=== PATIENT | male | born 1965 | race Two or more races ===

== ENCOUNTER 2017-05-03 13:34 | Emergency (ER) | payer OTHER ==
[2017-05-03 19:35] VITALS: BP 156/60
== END 2017-05-03 19:37 | disposition home or self-care (01) ==
LOC: ED 13:34
DX: G43.909 Migraine, unspecified, not intractable, without status migrainosus (principal); I10 Essential (primary) hypertension; E11.9 Type 2 diabetes mellitus without complications; G89.29 Other chronic pain; M54.2 Cervicalgia
CPT/HCPCS: J0360; J1200; J2765; J3490; J7030

== ENCOUNTER 2017-05-28 17:46 | Emergency (ER) | payer OTHER ==
[~2017-05-28] VITALS: Ht 167.6 cm; Wt 90.7 kg
[2017-05-28 19:08] LABS: CALCIUM 9.2 mg/dL (8.5-10.1); CARBON DIOXIDE 29.7 mmol/L (21-32); CHLORIDE SERUM 104 mmol/L (98-107); CREATININE SERUM 1.2 mg/dL (0.7-1.3); GFR1 > 60 mL/min; GLUCOSE SERUM 287 mg/dL (74-106); POTASSIUM SERUM 4.7 mmol/L (3.5-5.1); SODIUM SERUM 141 mmol/L (136-145)
[2017-05-28 22:10] VITALS: BP 165/95
== END 2017-05-28 22:42 | disposition home or self-care (01) ==
LOC: ED 17:46
PROVIDERS: Emergency Medicine
DX: G58.9 Mononeuropathy, unspecified (principal); G89.29 Other chronic pain; E11.9 Type 2 diabetes mellitus without complications; Z79.84 Long term (current) use of oral hypoglycemic drugs
CPT/HCPCS: Q9967